=== PATIENT | male | born 1960 | race Caucasian/White ===

== ENCOUNTER 2016-08-21 20:16 | Emergency (ER) | payer OTHER ==
[~2016-08-21 20:16] MED LIST: FLEXERIL10 MG PO; MEDROL DOSEPAK4 MG PO; MEDROL PO; VICODIN 5/500 T1 TAB PO
[2016-08-21 20:21] LABS: INFLUENZA A NEG (NEG); INFLUENZA B NEG (NEG)
== END 2016-08-21 20:30 | disposition home or self-care (01) ==
LOC: CFTX 20:16
PROVIDERS: Nurse Practitioner
DX: J06.9 Acute upper respiratory infection, unspecified (principal)
CPT/HCPCS: 87651; 87804; 99283; J1885

== ENCOUNTER 2016-09-11 16:06 | Emergency (ER) | payer OTHER ==
--- NOTE | ~2016-09-11 | CR63 ---
[facility] A Service of [facility] & [facility] RADIOLOGY TEXT RESULTS PATIENT: NAA FRAUSTO LOCATION: CFTX : 62 UNIT #: [id number] AGE: [address]: Latisha Rodarte APRN SEX: M ORDER DR: [id number] [facility] [address] [place], [place] [address] [id number] E MR#: [id number] Acc #: [id number] NAME: NAA FRAUSTO : 1960 SEX: M STUDY DATE/TIME: 09/11/2016 16:24 UNIT: [facility] ROOM: STUDY DESCRIPTION: CR Chest 2 View Attending Physician: Latisha Rodarte A.P.R.N. Ordering Physician: Ed Doctor [id number] [facility] Primary Care Physician: No Primary Care Physician MEDICAL IMAGING REPORT This report is preliminary unless electronic signature is present EXAM PA and lateral chest 09/12/15 COMPARISON 06/27/2010 HISTORY Cough, shortness of breath, congestion for 6 weeks FINDINGS PA and lateral views are obtained and compared to the study of 06/19/2010. The cardiovascular configuration is normal, and the lungs are clear. CONCLUSION Normal chest. Dictated by... Reagna Jon M.D. THIS IS AN ELECTRONICALLY VERIFIED REPORT Reagan Jon M.D. at 09/14/2016 7:20 AM BRET/izabela TD: 09/11/2016 23:44 JOB #: [id number] MEDICAL IMAGING REPORT Page 1 of 1 COPY
== END 2016-09-11 17:50 | disposition home or self-care (01) ==
LOC: CFTX 16:06
DX: J20.9 Acute bronchitis, unspecified (principal); J02.0 Streptococcal pharyngitis; H92.03 Otalgia, bilateral; Z98.890 Other specified postprocedural states
CPT/HCPCS: 71020; 87880; 94640; 96372; 99283; J0561

== ENCOUNTER 2016-11-02 09:53 | Emergency (ER) | payer OTHER | END 2016-11-02 11:09 | disposition home or self-care (01) | LOC: SED 09:53 → CED 09:53 | DX: L23.7 Allergic contact dermatitis due to plants, except food (principal) | CPT/HCPCS: 99282 ==